=== PATIENT | female | born 1990 | race Caucasian/White ===

== ENCOUNTER 2024-03-07 10:24 | Outpatient (RCR) | payer BC, SELFPAY ==
--- NOTE | 2024-03-07 10:10 | BH.SGPN.GN ---
Behaviors/Verbalizations/Mental Status: [] Client alert and oriented, casual appearance. Eye contact fair. Motor activity appropriate. Speech within normal limits. Affect congruent, mood depressed and anxious. Thoughts linear, logical, no signs of hallucinations or delusions. Client Response/Progress/Benefit: []Pt quiet throughout group session. Did appear attentive during group discussions. Attentive during psychoeducation about Goal Setting. Listened during the discussion on common barriers which the group identified as: lack of motivation, making excuses, high expectations, fear of failure, and lack of support. Group also identified benefits sense of purpose, improved self-confidence, more motivation for other goals, and improved mental health. Seemed to benefit from increased awareness of mental health benefits of goals as well as psychoeducation on SMART goal criteria. First day in IOP. Will continue in IOP to improve daily functioning, improve coping, increase confidence, and prevent decompensation. Narrative Note: []
--- NOTE | 2024-03-07 11:00 | BH.SGPN.GN ---
Behaviors/Verbalizations/Mental Status: []Pt alert and oriented, casually dressed and groomed. Eye contact good. Motor activity appropriate. Speech within normal limits. Affect congruent, mood anxious and depressed. Thoughts linear, logical, no signs of hallucinations or delusions. Client Response/Progress/Benefit: [] Pt was engaged during discussion and willing to complete the worksheet challenging them to develop a personal SMART goal. Pt chose the goal of walking her dog 1-2x in the next week. Pt stated this will improve motivation, connection with her dog, and reduce isolation. Pt identified time of day and guilt as potential barriers. Identified solutions such as taking a walk in the evening to reduce anxiety about seeing someone she knows, communicating her needs with her supports, and reminding herself of the benefits. Pt receptive to identifying solutions for these barriers and willing to begin working on this goal. Benefited from this group by developing a short-term SMART goal related to mental health. Will continue IOP tx to increase healthy coping skills, stabilize mental health sx, and prevent decompensation. Narrative Note: []
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
--- NOTE | 2024-03-07 14:28 | BH.MTP_ITS ---
Master Treatment Plan Patient Information Program Physician:: Dr. Strong Primary Therapist:: Sophia Carney, [facility] Psychiatric Diagnoses Psychiatric Diagnoses:: 1. Major depressive disorder, recurrent, severe without psychosis 2. PTSD 3. Generalized anxiety disorder 4. Primary support and work issues Diagnosis Code(s):: F33.2 Estimated LOS Estimated LOS (in weeks):: 6 Problem/Goal #1 Problem/Goal #1 Stated Goal:: Client will reduce overall frequency, intensity, and duration of the anxiety so that daily functioning is not impaired. Description of Barriers: Potential barriers include negative and distorted thoughts, limited support system, anxious thoughts, hopelessness, and low confidence. Functional Impact: Patient is a 33-year-old single female with a history of depression, anxiety and PTSD who was referred to the [facility] behavioral health IOP by friends and family for worsening symptoms of anxiety in the past month. She has been on intermittent FMLA since January 04, 2024. The patient in the past month began having trauma symptoms which were triggered by several events at work. She endorses sadness, crying, hopelessness, worthlessness, anhedonia, biological disruption of appetite, initial insomnia and waking up with a cold sweat although getting 7 to 8 hours of sleep. She also endorses low energy, decreased concentration, guilt, passive thoughts of and fleeting, passive suicidal ideation. She has thoughts of a plan but denies definitive plan. She has had a long history of passive thoughts of and says that she is always wanted to or not exist.. She states that these thoughts of have been lessening. Objectives Objective #1: Stated Objective: Client will learn and implement 2-3 calming skills to r educe overall anxiety and manage anxiety symptoms. Interventions: Therapist and group sessions will help client identify physiological warning signs of anxiety, increase awareness of thoughts that increase anxiety, and identify behaviors that reinforce anxious symptoms. Group and individual counseling will teach client calming skills to help manage anxious symptoms. Discharge Criteria: Client will have achieved this goal when can verbalize at least 2 calming skills and reports skills successfully help reduce anxious symptoms. Target Date: 04/22/24 Review Date: 04/04/24 Objective #2: Stated Objective: Client will identify 2-3 anxiety triggers and 2 coping skills to use when feeling anxious. Interventions: Therapist and group sessions will assist client in exploring what triggers anxiety and teach client coping strategies to effectively manage anxiety symptoms. Discharge Criteria: Client will have met this goal when can identify at least 2 triggers to anxiety and verbalize two healthy ways to cope with feelings of anxiety. Target Date: 04/22/24 Review Date: 04/04/24 Problem/Goal #2 Problem/Goal #2 Stated Goal:: Client will reduce depression, feelings of hopelessness, and thoughts of due to Major Depressive Disorder through the Intensive Outpatient Program. Description of Barriers: Potential barriers include negative and distorted thoughts, limited support system, anxious thoughts, hopelessness, and low confidence. Functional Impact: Patient is a 33-year-old single female with a history of depression, anxiety and PTSD who was referred to the [facility] behavioral health IOP by friends and family for worsening symptoms of anxiety in the past month. She has been on intermittent FMLA since January 04, 2024. The patient in the past month began having trauma symptoms which were triggered by several events at work. She endorses sadness, crying, hopelessness, worthlessness, anhedonia, biological disruption of appetite, initial insomnia and waking up with a cold sweat although getting 7 to 8 hours of sleep. She also endorses low energy, decreased concentration, guilt, passive thoughts of and fleeting, passive suicidal ideation. She has thoughts of a plan but denies definitive plan. She has had a long history of passive thoughts of and says that she is always wanted to or not exist.. She states that these thoughts of have been lessening. Objectives Objective #1: Stated Objective: Client will learn and utilize 2-3 healthy coping strategies to manage depressive symptoms. Interventions: Therapist will utilize CBT techniques to assist client with understanding the connection between thoughts, feelings and behaviors. Education will be provided on behavioral activation. Therapist will assist client in learning internal coping strategies to manage depressive symptoms, along with helping client identify triggers. Discharge Criteria: Client will have achieved this goal when can verbalize and has practiced at least 2 healthy coping strategies that successfully manage depressive symptoms. Target Date: 04/22/24 Review Date: 04/04/24 Objective #2: Stated Objective: Client will identify and replace 2-3 negative thinking patterns that reinforce feelings of hopelessness and helplessness. Interventions: Through groups and individual therapy, pt will be provided with education on cognitive distortions, mistaken beliefs, and identifying and combating negative self-talk. Therapist will assist pt with getting back into the activities she once enjoyed as well as increasing healthy coping strategies. Discharge Criteria: Client will have achieved this goal when can identify at least 2 negative thinking patterns, replace thoughts with rational thoughts, and combat suicidal ideation. Target Date: 04/22/24 Review Date: 04/04/24
--- NOTE | 2024-03-09 10:00 | BH.NA ---
Physical Data Vital Signs Pulse Rate: 69 Blood Pressure: 124/85 Height/Weight Height: 1.75 m Weight:: 83.915 kg Weight in Pounds: 185.0 lbs Current Medication Compliance Medication Compliance Do you take your medication as prescribed?: Yes Nutritional History Appetite Nutritional Instructions: Describe your appetite:: Fair Additional nutritional information:: Client states her appetite has been decreased since December and she has noticed her clothes fitting more loose. Functional Assessment Sleep Pattern Describe any problems with sleeping: Client states she sleeps 7-8 hours per night. Sensory/Communication Assess Vision Problems Do you have any vision problems?: Glasses Communication Problems Do you have difficulty understanding what people are saying?: No Medical Problems/History Pain Assessment Do you have acute or chronic pain?: No Surgical History Surgical History Have you had any surgeries? If so, list type and date:: Yes (tonsilectomy) Substance Abuse Substance Abuse Please describe substance abuse in the last 30 days:: Client reports past alcohol use but denies current. Client states she used nicotine pouches but stopped 1 week ago. Client states she used marijuana on a regular basis in the past, but has not used since December 2023. Client states she has tried cocaine, jason, mushrooms and Adderall once in the past. Client states she drinks 1 cup of coffee per day. Mental Status Summary Mental Status Significant Findings/Observations on Appearance and Mood:: Client is alert and oriented x 4. Client is casually groomed. Client is cooperative with assessment. Client makes good eye contact. Client's voice has normal rate and volume. Client has appropriate affect. Client makes logical associations and has normal processing. Client denies delusions/hallucinations. Client denies current SI, stating her fleeting SI has improved in the last few days. Suicide Assessment Suicidal Ideation Are you currently or have you been suicidal in the past?: Yes Suicidal Intentional Rating Scale (SIRS): Suicidal thoughts (past) (has fleeting SI at times, but denies at this time) Physician Notification Past Psychiatric History MH Treatment Hx Past Psychiatric Medications:: Zoloft (just weaned off, had increased suicidal thoughts and some xavier on Zoloft), Wellbutrin, Atarax Age of first mental health symptoms: Client states she first took medication for mental health around age 29, but states she has felt anxious and depressed much longer than that. Describe (age, circumstance, etc) any past hospitalizations: 2021- Current providers for mental health treatment (counselor, psychiatrist, bilingual patient support caseworker, etc.): Dr. Gamez, psychologist at the [facility] but states she may be looking for a new provider Fall Risk Assessment Age Age: Less than 60 Mental Status Mental Status: Willing & able to ask for assistance when needed Physical Status Physical Status: No problems Impairments Impairments: None Elimination Elimination: Continent AND independent Gait or Balance Gait or Balance: Walks independently Hx of Falls History of falls in the past 6 months: No known history Medications/Substances Psychotropics:: Antidepressants Medications/substances used within the past 24 hours or ordered to administer: 1-2 of the medications/substances listed above Total Score Total Points:: 1 RN Summary of Impressions Impressions Recommendations Impressions: Psychiatric Issues: 1. Major depressive disorder, recurrent, severe without psychosis 2. PTSD 3. Generalized anxiety disorder Level of Care How do the client's current symptoms and functional deficits support need for this level of care?: Client was referred to IOP by her family for increased anxiety. Client states in December, she had some trauma triggers that caused her to feel anxious at work and like she wasn't doing a good job. Client states her production numbers and work are within range, but she feels like she is not doing a good job and feared being fired. Client states she has lost weight due to decreased appetite since this time. Client also reports some crying episodes, anhedonia and ruminations. Client states she had been weaning off her Zoloft due to having increased suicidal thoughts when she was on her highest dose (200mg) and states she has switched to Prozac. Client states her fleeting suicidal thoughts have decreased this week since starting IOP. Client denies SI at this time. IOP will promote gains and prevent further decompensation while providing social support and skills training.
--- NOTE | 2024-03-09 10:10 | BH.SGPN.GN ---
Behaviors/Verbalizations/Mental Status: []Eye contact is good. Motor activity is appropriate. Appearance is casual. Speech is Appropriate. Mood is dysthymic. Affect is constricted. Thoughts are linear and logical. No evidence of psychosis. Client Response/Progress/Benefit: [] Pt was an engaged participant AEB listening attentively to others, taking notes, and providing feedback in small group discussions. Attentive during psychoeducation AEB by note taking and providing some input. Pt worked along with peers in small groups to define inappropriate guilt and appropriate guilt. Interactive discussion on examples of both inappropriate and appropriate guilt. Pt able to connect impact inappropriate guilt can have on MH. Pt gave an example of blaming self over actions of others as inappropriate guilt. Benefited from increased awareness of guilt and the differences between appropriate and inappropriate guilt. Will continue in IOP to improve confidence, challenge distorted thoughts, and prevent decompensation.
[2024-03-09 10:14] VITALS: BP 124/85; PULSE 69
--- NOTE | 2024-03-09 11:08 | BH.SGPN.GN ---
Behaviors/Verbalizations/Mental Status: []Pt alert and oriented, casually dressed and groomed. Eye contact good. Motor activity appropriate. Speech within normal limits. Affect congruent, mood depressed. Thoughts linear, logical, no signs of hallucinations or delusions. Client Response/Progress/Benefit: []Pt engaged participant AEB listening attentively to others and providing input throughout group. Pt worked within their small group to identify strategies to manage inappropriate guilt. Identified a personal example of inappropriate guilt as ?something that happened at work.? Insight cues a feeling of ?something is always wrong with me.? Pt wants to work on combatting inappropriate guilt by being kinder and more compassionate to herself. Pt seemed to benefit from learning about strategies to manage appropriate and inappropriate guilt. Pt will continue IOP tx to prevent decompensation, improve daily functioning, and increase distress tolerance. ? Narrative Note: []
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
--- NOTE | 2024-03-09 12:52 | BH.DR.ITP ---
Initial Treatment Plan Patient Information Visit Information: ADMISSION DATE: EXPECTED LOS: 4-6 weeks Problems/Symptoms Problem #1:: Anxiety Symptom:: Worry, rumination, panic attacks, nausea, gagging, dissociation, nightmares, flashbacks, reexperiencing, avoidance Problem #2:: Depression Symptom:: Sadness, worthlessness, guilt, anhedonia, biological disruption of appetite, low energy, decreased concentration, passive thoughts of , fleeting, passive suicidal ideation
--- NOTE | 2024-03-11 10:10 | BH.SGPN.GN ---
Behaviors/Verbalizations/Mental Status: [] Eye contact is good. Motor activity is appropriate. Appearance is casual. Speech is Appropriate. Mood is anxious. Affect is congruent. Thoughts are linear and logical. No evidence of psychosis Client Response/Progress/Benefit: [] Client participated at times during interactive group discussions. Attentive during psychoeducation on the six types of boundaries (physical, emotional, intellectual, sexual, time, and material) AEB note-taking and input in group discussions. Along with peers contributed to interactive discussion on defining what a boundary is in mental health. Client along with peers identified challenges to setting boundaries which included; fear of conflict, being uncomfortable, believing they are being rude or mean, etc. Client along with peers identified the benefits to setting boundaries such as healthier relationships, stronger sense of self, and improved confidence. Client benefited from increased awareness and insight on the importance/benefit to setting health boundaries. Will continue in IOP to prevent decompensation, maintain safety, and increase healthy coping. Narrative Note: []
--- NOTE | 2024-03-11 11:10 | BH.SGPN.GN ---
Behaviors/Verbalizations/Mental Status: [] Eye contact is good. Motor activity is appropriate. Appearance is casual. Speech is Appropriate. Mood is euthymic. Affect is congruent. Thoughts are linear and logical. No evidence of psychosis. Client Response/Progress/Benefit: [] Client responded well to session AEB listening attentively to peers, providing some input, as well as taking notes throughout. Client contributed throughout psychoeducation on different boundary setting styles. Participated in group discussion brainstorming various strategies for improving healthy boundary settings, as a group identified starting with easy/small boundaries, opening up to one trusted person and not overly apologizing as strategies to try. Seemed to benefit from increased awareness of how different boundary styles can impact mental health. Will continue IOP tx to increase healthy coping, improve view of self, and prevent decompensation.
--- NOTE | 2024-03-11 13:43 | BH.MDN ---
Multi-Disciplinary Note Note 60-min Individual: Time Started:: 09:00 Date: 03/11/24 Purpose of session/treatment goals addressed:: Purpose of session was to address goals 1 and 2 from MTP. Eye Contact:: Good Motor Activity:: Appropriate Appearance:: Casual Speech:: Appropriate Mood:: Anxious Affect:: Constricted Thoughts:: Linear, Logical and No evidence of hallucinations/delusions noted Staff Interventions:: thought challenging, psychoeducation on: (cognitive triangle and behavior activation), CBT techniques, mindfulness skills, rapport building, strengths perspective, goal setting and taught coping skills (breathing and grounding tools) Client Response:: Client stated so far she has really enjoyed her first week in [facility]. Client reported she is already learned new things from different group topics and has been reflecting on the topic to apply it to her life. Therapist provided psychoeducation about cognitive triangle and behavior activation. Therapist assisted client with recognizing how her thoughts behaviors and emotions are all interconnected. Client able to make connections on how sometimes the way she thinks and/or behaves turns into a depression or anxious maintenance cycle. Client stated she recognizes she used to have a lot more hobbies in the past but has stopped doing majority of them because she has not felt like it. Client shared some the hobbies she used to have included: Drawling, being active, CrossFit, reading, walking her dog, and [place] climbing. Client stated she does continue to walk her dog and finds it to be really important to her. Client shared some of the reason she has not engaged in these activities because she has not felt like it and in addition to that she has questioned whether it something that she actually enjoys or is it something she did because that is what the partner she was with at the time enjoyed. Client shared she feels like she does not really know who she is or what she likes because often within relationships she molds into what the other person likes and does. Client reported she could get back involved in rock wall climbing because it was something she enjoyed. 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 Client also agreeable to practice breathing and grounding techniques taught in session. Risks/Concerns:: denies suicidal ideation, plan, or intention. future oriented. Progress Toward Goals/Plan:: Progress noted with client reporting connection to group sessions and starting to apply skills/strategies outside treatment environment. Client noted slight improvement with mood. Continues to experience anxious symptoms and thoughts. Client stated still having flashbacks from witnessing traumatic event at work. Client to continue IOP to increase healthy coping, improve daily functioning, and prevent decompensation. Time Stopped:: 09:55
--- NOTE | 2024-03-14 09:01 | BH.SGPN.GN ---
Behaviors/Verbalizations/Mental Status: [] Pt eye contact good, casually dressed, motor activity appropriate, speech normal rate and tone, mood euthymic and anxious, congruent affect, thoughts linear and intact, no evidence of delusions or hallucinations. Per daily symptom tracker pt denies active SI and intention. Client Response/Progress/Benefit: [] Client appeared to listen attentively to others and sharing openly with group. Per daily sympton tracker client reports 3/5 for anxiety and 2/5 for depression. Client reported mental health positive as choosing to change her environment at work when feeling down/depressed by going outside for her lunch break to get some fresh air and sun. Stated this did help improve her mood. Client stated additional positive as applying skills learned from group by being more mindful about her boundaries, specially being more cognizant of not over sharing with her co-worker. Appeared to benefit from support from peers. Client stated stressor is having a thought over the weekend that she didn't need IOP. Stated she did process this and knows coming to IOP could be very beneficial to her. Will continue IOP tx to promote healthy coping skills, continue working on distress tolerance, and prevent decompensation,.
--- NOTE | 2024-03-14 10:10 | BH.SGPN.GN ---
Behaviors/Verbalizations/Mental Status: [] Eye contact is good. Motor activity is appropriate. Appearance is casual. Speech is Appropriate. Mood is depressed. Affect is congruent. Thoughts are linear and logical. No evidence of psychosis. Client Response/Progress/Benefit: [] Pt participated at times. Attentive. Participated in and was engaged during experiential activity. Able to relate experiential activity to group topic of FOF. Engaged during interactive discussion on what failure means to the group in which peers identified and defined failure and Fear of Failure. Group was able to identify impact of fear of failure on mental health identifying that it can cause procrastination, avoidance, self-sabotage behaviors, etc. Attentive during interactive discussion on the impact that FOF can have on mental wellness, depression, anxiety, career, relationships, and growth. Benefited from increased awareness of how the role that FOF plays in mental health and decision-making. Will continue in IOP to prevent decompensation, decrease intrusive thoughts/anxiety, and increase healthy coping. Narrative Note: []
--- NOTE | 2024-03-14 11:08 | BH.SGPN.GN ---
Behaviors/Verbalizations/Mental Status: []Pt alert and oriented, neatly dressed and groomed. Eye contact good. Motor activity appropriate. Speech within normal limits. Affect congruent, mood euthymic. Thoughts linear, logical, no signs of hallucinations or delusions. Client Response/Progress/Benefit: []Pt responded well to session, engaged in the experiential activity and attentive throughout group processing. Pt reported fear of failure has kept pt from continuing her education, making new friends, and being with myself. Pt completed fear of failure worksheet and was able to identify thoughts and behaviors that reinforce personal fear of failure including procrastination, fear of looking silly, and not combatting negative self-talk. Pt participated in group discussion regarding strategies to overcome fear of failure. Identified wanting to work on using opposite action and noting how it went. Appeared to benefit from increased knowledge of strategies to combat fear of failure and gaining self-awareness. Pt will continue IOP tx to prevent decompensation, improve daily functioning, and reduce negative thinking patterns. ? Narrative Note: []
--- NOTE | 2024-03-16 09:05 | BH.SGPN.GN ---
Behaviors/Verbalizations/Mental Status: [] Eye contact is good. Motor activity is appropriate. Appearance is casual. Speech is Appropriate. Mood is euthymic. Affect is full. Thoughts are linear and logical. No evidence of psychosis. Reviewed daily check in sheet and no reports of suicidal ideations or intent. Client Response/Progress/Benefit: [] Pt was an active participant in group discussion. Attentive. Daily symptom tracker notes 2/5 for depression and anxiety. Emotion for today is receptively calm. Able to identify mental health wins and healthy habits. She shared several mental health wins since yesterday. Able to utilize behavioral activation and thought reframing skills to follow thorough with responsibilities inside and outside of her house. Shared stressors and symptom struggles as well. Progress noted per pt report. Benefited from group support, encouragement, and feedback. Will continue in IOP to prevent decompensation, increase healthy coping, and improve functioning. Narrative Note: []
--- NOTE | 2024-03-16 11:10 | BH.SGPN.GN ---
Behaviors/Verbalizations/Mental Status: [] Client alert and oriented, casually dressed and groomed. Eye contact good. Motor activity appropriate. Speech within normal limits. Affect constricted, mood dysthymic. Thoughts linear, logical, no signs of hallucinations or delusions. Client Response/Progress/Benefit: [] Client responded well to session, engaged and taking notes throughout. Worked with group to connect components of the experiential activity with characteristics of healthy and unhealthy relationships. Attentive during psychoeducation about characteristics of healthy, unhealthy, and abusive relationships. Client reported she would like to work on being honest with her needs and will practice this by communicating that she needs alone time with her dog. Appeared to benefit from identifying current healthy relationship attributes and an area client wants to work on to build healthier relationships. Client to continue IOP to increase consistent use of healthy coping skills, challenge distorted thoughts, and prevent decompensation.
--- NOTE | 2024-03-17 10:10 | BH.SGPN.GN ---
Behaviors/Verbalizations/Mental Status: []Pt alert and oriented, casually dressed and groomed. Eye contact good. Motor activity appropriate. Speech within normal limits. Affect congruent, mood depressed and anxious. Thoughts linear, logical, no signs of hallucinations or delusions. Client Response/Progress/Benefit: [] Pt was an active?participant in group discussion identifying benefits of healthy relationships which included improved connections, accountability, and personal growth. Group identified factors that lead to unhealthy relationships. Pt?s personal factors included isolation, ignoring her own needs and prioritizing other's frederic, and not addressing conflict. Actively participated in group experiential activity and expressed ideas to group. Benefited from increased insight and awareness of benefits of healthy relationships and factors that contribute to unhealthy relationships. Will continue IOP tx to promote mood stability, increase application and repertoire of coping skills, and improve daily functioning. Narrative Note: []
--- NOTE | 2024-03-18 09:05 | BH.SGPN.GN ---
Behaviors/Verbalizations/Mental Status: [] Pt alert and oriented, neatly dressed and groomed. Eye contact good. Motor activity appropriate. Speech within normal limits. Affect congruent, mood euthymic and anxious. Thoughts linear, logical, no signs of hallucinations or delusions. Reviewed pt?s symptom tracker, no risk for suicidal ideation, plan, or intent 03/18/24 Client Response/Progress/Benefit: []Pt responded well to session, attentive and engaged. Pt reports feeling mixed this morning. Pt shared she can see a lot of wins, but pt is also having a lot of negative thoughts and stress with family. Pt shared one stressor as snapping at my mom after spending too much time together. Pt receptive to feedback from group and was reminded that she can love someone and not want to spend long periods of time with them. Pt's wins included cleaning/organizing, walking her dog, and listening to uplifting music. Pt appeared to benefit from recognizing personal progress and connecting with peers. Pt will continue IOP tx to prevent decompensation, gain healthy coping skills, and improve daily functioning. Narrative Note: []
--- NOTE | 2024-03-18 10:15 | BH.SGPN.GN ---
Behaviors/Verbalizations/Mental Status: []Eye contact is good. Motor activity is appropriate. Appearance is casual. Speech is Appropriate. Mood is content. Affect is congruent. Thoughts are linear and logical. No evidence of psychosis. Client Response/Progress/Benefit: [] Pt was an active participant in activity and taking notes during group discussion. Attentive during psychoeducation and interactive discussion on coping skills included why people use unhealthy skills. Group came up with list of unhealthy coping skills and pt identified personal ones as avoidance, denial, and not practicing self-care. Group discussed the effects of how unhealthy coping skills can impact mental health in a negative way. Participated during experiential activity and was able to relate the activity to group topic regarding the benefits of developing strong internal and external support system. Benefited from increased understanding of unhealthy coping skills and the need for developing healthy internal and external coping skills. Pt will continue IOP tx to prevent decompensation, promote mood stability, and improve daily functioning. ? Narrative Note: []
--- NOTE | 2024-03-18 11:15 | BH.SGPN.GN ---
Behaviors/Verbalizations/Mental Status: []Pt alert and oriented, casually dressed and groomed. Eye contact good. Motor activity appropriate. Speech within normal limits. Affect congruent, mood anxious and euthymic. Thoughts linear, logical, no signs of hallucinations or delusions. Client Response/Progress/Benefit: [] Pt responded well to session, taking notes and contributing when prompted. Group discussed the different categories of coping skills which included distraction, emotional release, grounding, self-love, and thought challenging. Pt participated in creating a coping skills ?menu? from the five categories of coping skills. Pt's coping skill menu included: goal oriented tasks, laughing, belly breathing, body movement/yoga, and delay, distract, decide technique. Appeared to benefit from increasing repertoire of healthy coping skills. Will continue IOP to improve view of self, challenge distortions, and prevent decompensation.
--- NOTE | 2024-03-18 14:54 | BH.MDN ---
Multi-Disciplinary Note Note 45-min Individual: Time Started:: 12:10 Date: 03/18/24 Purpose of session/treatment goals addressed:: The session was to address goals 1 and 2 from MTP. Eye Contact:: Good Motor Activity:: Appropriate Appearance:: Casual Speech:: Appropriate Mood:: Anxious Affect:: Constricted Thoughts:: Linear, Logical and No evidence of hallucinations/delusions noted Staff Interventions:: thought challenging, psychoeducation on: (self-care), CBT techniques, strengths perspective, goal setting and taught coping skills (self-care activities and provided self-care wheel) Client Response:: Client shared she was struggling after spending time all with her mom and became upset with herself for correcting her mom while at her niece's [employer] game. Client stated she realizes now that she was trying to do too much in 1 day. Client reports she does get bothered when in public with her mom because she has lot of social anxiety and can be critical of others. Client stated she did make a comment to her mom when her mom was making an unhelpful comment by another person. Client perceived herself as being critical but with further discussion it seems client was truly setting a boundary but was hard on herself for doing so. Client stated she ruminated on the situation the rest of the evening and then was upset with herself for taking a Ativan at night to help her sleep. Processed negative thought patterns and anxious thoughts helping client challenge negative thought patterns. Client noted she does need to work on being less attuned to others' emotions because it negatively impacts her own emotions and ability to enjoy being out. Client gave example of being overly worried about her mom being anxious while at a store. Client stated often her own emotions are impacted by the anxiety of others. Discussed the importance of utilizing grounding tools and breathing tools to help bring client back to the here and now and focus on her own self and what is within her control. Client stated she recognizes she puts a lot of effort into helping others and trying to be there for what other people need and often lacks taking care of herself. Client responded well to psychoeducation about self-care and the importance of doing things that she enjoys. Therapist reviewed self-care wheel with client and discussed different self-care activities they can fall under each category. Client agreeable to complete homework of identifying at least 1 self-care activity she can start to practice for each domain of self-care. Risks/Concerns:: Denies suicidal thoughts, plans, or intention. future oriented. Progress Toward Goals/Plan:: Progress noted with client reporting utilization of opposite action while at work the other day. Client stated she noticed improvement in her mood when she chose to go outside during her lunch break instead of staying in her office all alone. Client also starting to work on learning about what boundaries are important to her and recognizing the importance of setting limits so she can start to focus on her own needs. Client did report moments of feeling down and depressed over the last week and her own anxiety spiked when pushed herself too much with socializing with her mom. Client is to continue IOP to increase healthy coping skills, improve thought patterns, and prevent decompensation. Time Stopped:: 13:00
--- NOTE | 2024-03-23 09:05 | BH.SGPN.GN ---
Behaviors/Verbalizations/Mental Status: [] Eye contact is good. Motor activity is appropriate. Appearance is casual. Speech is Appropriate. Mood is euthymic. Affect is full. Thoughts are linear and logical. No evidence of psychosis. Reviewed daily check in sheet and no reports of suicidal ideations or intent. Client Response/Progress/Benefit: [] Pt was an active participant in group discussions. Attentive. Daily symptom tracker notes 12/28 for anxiety and 2 for irritability. Shared with the group anxiety pacing on Thursday. Able to identify thoughts that were leading to panic which led to healthy reframing and challenging. Awareness that she was setting unrealistic expectations for herself which was leading to guilt and feel overwhelmed. With awareness came impletation of skills and symptom reduction. A goal that she has is to increase her social network which has been difficult. Group provided suggestions and encouragement which was beneficial. Progress noted. Will continue in IOP to prevent decompensation, stabilize mood, and increase healthy coping skills. Narrative Note: []
--- NOTE | 2024-03-23 10:10 | BH.SGPN.GN ---
Behaviors/Verbalizations/Mental Status: []Client alert and oriented, casually dressed and groomed. Eye contact good. Motor activity appropriate. Speech within normal limits. Affect congruent, mood euthymic. Thoughts linear, logical, no signs of hallucinations or delusions. Client Response/Progress/Benefit: []Pt engaged in session AEB listening attentively to others and providing input throughout. Pt engaged in activity, able to connect how it can be uncomfortable and difficult to accept when things are out of one?s own control. Pt worked with group to identify what things in life can be hard to accept. Group identified things hard to accept as: change, loss of relationship, mental health diagnosis, other?s behaviors, and finances. Pt identified struggling to accept living life on her own doesn't meet she's lonely. Seemed to benefit from increased awareness of importance of acceptance. Pt to continue IOP tx to increase healthy coping skills, improve view of self, and prevent decompensation.
--- NOTE | 2024-03-23 11:10 | BH.SGPN.GN ---
Behaviors/Verbalizations/Mental Status: []Pt alert and oriented, neatly dressed and groomed. Eye contact good. Motor activity appropriate. Speech within normal limits. Affect congruent, mood euthymic. Thoughts linear, logical, no signs of hallucinations or delusions. Client Response/Progress/Benefit: [] Pt responded well to session AEB taking notes and contributing to discussion throughout. Pt engaged as group continued discussion on acceptance and the mental health benefits of practicing acceptance. Pt and peers identified what makes acceptance challenging and pt completed a self-reflection exercise on what is hard to accept in pt's life. Pt identified what is hard to accept in her life and how it makes things harder when resists acceptance. Group identified strategies to increase acceptance and pt wants to work on reminding herself that ?I can love someone and not want them in my life.? Pt appeared to benefit from gaining insight and learning strategies to increase acceptance. Pt will continue IOP tx to prevent decompensation, improve daily functioning, and gain self-compassion. Narrative Note: []
--- NOTE | 2024-03-23 11:32 | PCM.BH.PN ---
Progress Note Progress Note: History of Present Illness/Interim History: The patient is a 33-year-old single female with a history of depression, anxiety and PTSD who was seen in follow-up at the [facility] [place] behavioral health IOP. I last saw the patient 2 weeks ago and no medication changes were made. Per staff the patient has been consistent in attendance and engaged in the program and has made some progress in the past few weeks. The patient states that she feels much better and that her anxiety is decreased to the point where it is quite manageable. She no longer has crying episodes, hopelessness, passive thoughts of or fleeting passive suicidal ideation. The patient feels she is gaining insight into her her issues and also into the impact her trauma has had on her life. She also denies active suicidal ideation, plan for suicide, homicidal ideation, hallucinations or delusions. Current Psychiatric Medications: [] Prozac 20 mg p.o. daily (x 1 month); Zoloft weaned and discontinued 2 weeks ago;. Mental Status Examination: [] The patient is a 33-year-old female who appears normal for stated age and is casually dressed and groomed with good hygiene. She is seen wearing glasses and is ambulatory with a normal gait and has no psychomotor agitation or retardation. She is cooperative and pleasant during the interview. Eye contact is good and speech is normal rate and rhythm and fluent with no pressure. Mood is anxious and mildly depressed. Affect is full and normal. Thought processes goal-directed and organized. Thought content: The patient is hopeful for the future. There is no evidence of passive thoughts of , passive suicidal ideation, active suicidal ideation, plan for suicide, homicidal ideation, hallucinations or delusions. Reality testing is intact. Judgment is intact. Insight is good. Impulsivity is moderate. Diagnoses: [] 1. Major depressive disorder, recurrent, severe without psychosis (improving) 2. PTSD 3. Generalized anxiety disorder 4. Primary support and work issues Plan: [] The patient will continue the IOP and behavioral health at [facility] [place] as the structure, support, education and group therapy will hopefully prevent worsening of the patient's symptoms which could require hospitalization. She felt safe during the interview and if it anytime she does not feel safe she will let us know or go to the emergency room. The risk, options, possible complications and side effects of the medications were discussed with the patient again and she understands and accepts these. The patient wishes to not increase the Prozac at this time as she feels she is making progress and is fearful of side effects or feeling numb on it. She will continue to follow-up with her outpatient providers and I will see the patient in follow-up in 2 weeks. The patient remains sober from nicotine which she quit 3 weeks ago and marijuana which she quit over 2 months ago.
--- NOTE | 2024-03-25 11:15 | BH.SGPN.GN ---
Behaviors/Verbalizations/Mental Status: []Client alert and oriented, casually dressed and groomed. Eye contact good. Motor activity appropriate. Speech within normal limits. Affect congruent, mood euthymic. Thoughts linear, logical, no signs of hallucinations or delusions. Client Response/Progress/Benefit: []Pt was engaged throughout AEB contributing to group discussion and self-reflection. Group finished processing cues to anger worksheet. Pt contributed as group brainstormed healthy coping skills for better managing anger which included: music, walking/exercise, taking a break, reflection, and journaling. Attentive in discussion about identifying personal anger cycle. Stated will work on exercise, journaling, walking away, and exercise as skills/strategies to prevent unhealthy anger response. Pt appeared to benefit from identifying different techniques to manage anger as well as gaining awareness of potential consequences of unmanaged anger. Pt to continue IOP to continue use of healthy coping skills, challenge distorted/negative thoughts, and prevent decompensation.
--- NOTE | 2024-03-25 13:40 | BH.MDN ---
Multi-Disciplinary Note Note 45-min Individual: Time Started:: 09:07 Date: 03/25/24 Time Stopped:: 10:00
== END 2024-03-25 23:59 ==
LOC: BHIOP 10:24
PROVIDERS: Visit Provider Psychiatry & Neurology Psychiatry
DX: F33.2 Major depressive disorder, recurrent severe without psychotic features (principal); F43.10 Post-traumatic stress disorder, unspecified; F41.1 Generalized anxiety disorder; Z79.899 Other long term (current) drug therapy
CPT/HCPCS: S9480; 90834; 90837; 90853

== ENCOUNTER → 2024-03-23 | Outpatient (CLI) | payer BC, SELFPAY ==
[2024-03-23 14:22] LABS: Thyroid Stim Hormone (TSH) 0.73 uIU/mL (0.358-3.74)
[2024-03-23 15:35] LABS: Vitamin D,25 Hydroxy 17.2 ng/mL
== END | disposition home or self-care (01) ==
LOC: LAB 13:15
PROVIDERS: PCP Nurse Practitioner Family; Referring Provider Psychiatry & Neurology Psychiatry; Visit Provider Psychiatry & Neurology Psychiatry
DX: E55.9 Vitamin D deficiency, unspecified (principal)
CPT/HCPCS: 36415; 82306; 84443

== ENCOUNTER 2024-03-28 08:11 | Outpatient (RCR) | payer BC, SELFPAY ==
--- NOTE | 2024-03-25 10:10 | BH.SGPN.GN ---
Behaviors/Verbalizations/Mental Status: [] Eye contact is good. Motor activity is appropriate. Appearance is casual. Speech is Appropriate. Mood is anxious. Affect is full. Thoughts are linear and logical. No evidence of psychosis Client Response/Progress/Benefit: [] Pt responded well to session AEB contributing to small group discussion, taking notes, and listening attentively to others. Participated during interactive discussion in which pt and peers defined anger and discussed the benefits of managed anger and anger as a secondary emotion. Group identified several emotions which can drive anger which included; pain, confusion, jealously, regret, loss, embarrassment, and exhaustion. Appeared to benefit from increased knowledge of the anger cycle as well as personal triggers. Will continue IOP to prevent decompensation, increase healthy coping skills, and stabilize mood. Narrative Note: []
[2024-03-26 02:37] VITALS: BP 124/85; PULSE 69
--- NOTE | 2024-03-28 09:05 | BH.SGPN.GN ---
Behaviors/Verbalizations/Mental Status: [] Eye contact is good. Motor activity is appropriate. Appearance is casual. Speech is Appropriate. Mood is dysthymic. Affect is congruent. Thoughts are linear and logical. No evidence of psychosis. Reviewed daily check in sheet and pt reports 1/5 for suicidal ideations and 0/5 for intent. Client Response/Progress/Benefit: [] Pt was an active participant in group discussion. Attentive. Daily symptom tracker notes 3/5 for depression, anxiety, and irritability. Emotion for today is distracted and tired. Shared limited self-care and increased symptoms this past weekend. Attempted to utilize skills however limited benefit. Shared odd interactions with co-workers this weekend. Reports difficulty utilizing skills when tired which led to decompensation over the weekend. Benefited from group support, encouragment, and feedback. Will continue in IOP to prevent decompensation, stabilize mood, and increase healthy coping. Narrative Note: []
--- NOTE | 2024-03-28 10:15 | BH.SGPN.GN ---
Behaviors/Verbalizations/Mental Status: []Pt alert and oriented, casually dressed and groomed. Eye contact good. Motor activity appropriate. Speech within normal limits. Affect congruent, mood content, anxious. Thoughts linear, logical, no signs of hallucinations or delusions. Client Response/Progress/Benefit: [] Pt connected with topic of anxiety and participated throughout, providing input and taking notes. Participated throughout interactive discussion defining anxiety and identifying cognitive and physiological symptoms of anxiety. Group discussed how anxiety can prevent them from trying new things. Pt identified their physical signs of anxiety as: stomach issues, feeling disconnected, and restlessness. Pt identified safety behaviors as: cancelling plans, isolating, and substance use. Benefited from increased awareness and insight on anxiety and its impact. Pt will continue IOP tx to prevent decompensation, improve daily functioning, and increase self-care. Narrative Note: []
--- NOTE | 2024-03-28 11:15 | BH.SGPN.GN ---
Behaviors/Verbalizations/Mental Status: []Pt alert and oriented, casually dressed and groomed. Eye contact good. Motor activity appropriate. Speech within normal limits. Affect congruent, mood euthymic. Thoughts linear, logical, no signs of hallucinations or delusions. Client Response/Progress/Benefit: [] Pt was an active participant AEB pt providing input and listening attentively to peers. Attentive during psychoeducation on mindfulness coping skills and their impact on reducing anxiety and improving overall mental health wellness. Group was able to identify self-soothing and mind-based coping skills which included: 5-senses, meditation, deep breathing, TIPP, thought challenging, and progressive muscle relaxation. Pt also participated with peers in practicing mindfulness skills in session. Pt would like to work on looking at the evidence, TIPP, and delay, distract, decide to help manage anxiety. Appeared to benefit from increasing repertoire of anxiety reduction skills. Pt will continue in IOP tx to promote mood stability, reduce negative thinking patterns, and improve daily functioning. Narrative Note: []
--- NOTE | 2024-03-30 09:05 | BH.SGPN.GN ---
Behaviors/Verbalizations/Mental Status: [] Pt alert and oriented, neatly dressed and groomed. Eye contact good. Motor activity appropriate. Speech within normal limits. Affect congruent, mood euthymic. Thoughts linear, logical, no signs of hallucinations or delusions. Reviewed pt?s symptom tracker, no risk for suicidal ideation, plan, or intent 03/30/24 Client Response/Progress/Benefit: []Pt responded well to session, attentive and engaged. Pt reports feeling tired and enthralled this morning. Pt shared her mental health wins today as socializing with her neighbors and finding karl in the interaction, making an eye appointment, and beginning to believe that maybe I do have some redeeming qualities. Pt's stressor today is navigating how to manage anxiety. Pt appeared to benefit from receiving supportive statements from peers. Pt will continue IOP tx to promote mood stability, increase self-compassion, and reduce isolation. Narrative Note: []
--- NOTE | 2024-03-30 10:15 | BH.SGPN.GN ---
Behaviors/Verbalizations/Mental Status: [] Eye contact is good. Motor activity is appropriate. Appearance is casual. Speech is Appropriate. Mood is anxious and cnotent. Affect is congruent. Thoughts are linear and logical. No evidence of psychosis. Client Response/Progress/Benefit: [] Pt receptive of session, actively engaged throughout AEB taking notes, providing input, and contributing in small group discussion. Appeared to connect with group topic of automatic thoughts and cognitive distortions and the impact of thought patterns on mental health, coping behaviors, and relationships. This particular group is very heavy on psychoeducation and pt appeared to connect with distortions and how they can impact functioning. Identified struggling with mind reading and predicting the future distortions. Pt appeared to benefit from gaining insight on distorted thinking patterns and how this impacts overall mental health. Will continue IOP to stabilize mood, improve self compassion and confident, and prevent decompensation. Narrative Note: []
--- NOTE | 2024-03-30 11:15 | BH.SGPN.GN ---
Behaviors/Verbalizations/Mental Status: []Pt alert and oriented, casually dressed and groomed. Eye contact good. Motor activity appropriate. Speech within normal limits. Affect congruent, mood euthymic. Thoughts linear, logical, no signs of hallucinations or delusions Client Response/Progress/Benefit: [] Pt was an active participant during group discussion. Pt was placed in a smaller group and participated in combatting example distortions with peers. Pt was engaged in the smaller group, participated in group interactions to brainstorm answers, and appeared to be comprehending cognitive distortions. Attentive and appeared to connect with psychoeducation about different strategies to reframe/challenge distortions. Engaged in small group practice of challenging cognitive distortion examples. Benefited from gaining further insight and awareness of cognitive distortions as well as practicing ways to reframe and challenge thoughts. Will continue in IOP to increase confidence, challenge negative thoughts, and prevent decompensation.
--- NOTE | 2024-03-30 15:03 | BH.MDN_ITS ---
Multi-Disciplinary Note Note 60-min Individual: Time Started:: 12:05 Date: 03/30/24 Purpose of session/treatment goals addressed:: Purpose session was to address goals 1 and 2 from MTP. Eye Contact:: Good Motor Activity:: Appropriate Appearance:: Casual Speech:: Appropriate Mood:: Anxious, Dysthymic and Other (Tearful) Affect:: Congruent Thoughts:: Linear, Logical and No evidence of hallucinations/delusions noted Staff Interventions:: thought challenging, CBT techniques, strengths p erspective, goal setting, taught coping skills and other (Problem solving) Client Response:: Client reported on Thursday she went out to eat with her mom and client stated she felt like she did better with focusing on herself versus focusing on her mom's behavior. Client stated typically she gets agitated with how her mom acts in public. Client stated she did recognize she was less agitated while out to eat with her mom which she attributes to trying to focus on herself more. Client reported while at the dinner she did have a drink and then felt extremely tired in the evening. Client stated she for some reason was being in a more depressed state and had thoughts that it be better if she was not alive. Client reported she was having some negative thoughts that she is alone and that people would just go on with their lives. Client was open to assistance from therapist to thought challenge some of the negative thought patterns she was having. Client stated she recognizes that the thoughts were irrational and that she does not want to . Client stated she did not think it was odd reaction she had to having a drink and feeling tired. Client recognizes she needs to continue to work on building her own confidence and self-esteem because she often relies on external validation in order to feel worth and feel good about herself. Client open to completing thought log to help her identify potential patterns in her negative thoughts and start the process of being able to challenge negative thoughts on her own. Risks/Concerns:: Denies suicidal ideation, plan, or intention. Future oriented. Client reports being able to maintain safety. Progress Toward Goals/Plan:: Progress note with client doing better with not allowing her mom's emotions to impact her own emotions anymore. Client still reporting moments of increased negative thinking and depressed thoughts. However despite recent depressed mood and passive thoughts of she was able to work through that moment and return to [facility]. Client could benefit from continuing to work on building confidence and view of self. Client is to start completing a thought log and will elicit support from therapist to help with challenging negative thoughts. Client to continue IOP to challenge distorted thoughts, improve view of self, and prevent decompensation. Time Stopped:: 13:00
--- NOTE | 2024-03-30 15:08 | BH.MTP_ITS ---
Treatment Plan Review Demographics Date of Admission:: 03/07/24 Date of Treatment Plan Review:: 03/30/24 Admitting Diagnoses:: 1. Major depressive disorder, recurrent, severe without psychosis F33.2 2. PTSD 3. Generalized anxiety disorder 4. Primary support and work issues Current Diagnoses:: 1. Major depressive disorder, recurrent, severe without psychosis F33.2 2. PTSD 3. Generalized anxiety disorder 4. Primary support and work issues Patient Status Patient's Response to Treatment:: Pt has responded well to treatment AEB consistent attendance, engaging in group sessions, and opening up with IOP therapist. Status of Current Problems and Symptoms: Client reporting improvement with her ability to manage her emotions and mental health symptoms. Client is doing be tter with starting set boundaries with her mom and reporting a decrease in how her mom's emotions impact her. Client starting to report improvement in how she feels at work. Client occasionally still feels guilty about traumatic situation that occurred at work. Client reporting mild anxiety and depression currently. Client's anxiety has kept her from going to the gym due to worries about how others will think about her. Progress Problem #1: Problem Name:: Anxiety Status of Goals:: Obj 1 - met, ongoing work encouraged. Client is able to identify healthy calming skills like belly breathing, grounding, and engaging her senses. Client reports she has been doing better with utilizing calming skills to manage anxious symptoms. Client is still engaging in avoidance of certain anxiety provoking situations like going to certain public places due to her anxiety. Per DSM 5 clients scores at review indicate a 67% reduction in anxious symptoms when compared to admission scores. Obj 2 - partially met, ongoing work encouraged. Client can identify her anxiety triggers like being around certain men and going to certain public places. Does struggle with use of skills to help manage these anxiety triggers. Per DSM 5 cross-cutting measure client's scores indicate a 67% reduction in overall mental health symptoms. Team Recommendations:: Team recommends continued work on goals and objectives with focus on consistently using skills, decreasing avoidance of anxiety provoking situations, and continued work on building self- esteem/confidence by challenging negative thoughts. Problem #2: Problem Name:: Depression Status of Goals:: Obj 1 - met, ongoing work encouraged. Client reporting decrease in her depressed symptoms AEB improved daily functioning, improve daily mood, and interest in starting new hobbies. Per DSM 5 cross-cutting measure at review client's scores indicate a 63% reduction in depression. Obj 2 - progress noted, ongoing work encouraged. Client is reporting some awareness of her negative thought patterns and can connect how her negative thoughts impact her mood. Client not at the point she can independently challenge negative thought patterns. Team Recommendations:: Team recommends continued work on goals and objectives with focus on consistently using skills, decreasing avoidance of anxiety provoking situations, and continued work on building self- esteem/confidence by challenging negative thoughts.
--- NOTE | 2024-04-04 09:00 | BH.SGPN.GN ---
Behaviors/Verbalizations/Mental Status: [] Client alert and oriented, casual appearance. Eye contact good. Motor activity appropriate. Speech within normal limits. Affect congruent, mood euthymic. Thoughts linear, logical, no signs of hallucinations or delusions. Reviewed client?s symptom tracker, no risk for suicidal ideation, plan, or intent. Client Response/Progress/Benefit: [] Client responded well to session AEB listening to others and sharing thoughts/feelings. Client reports a 2/5 for depression and a 3/5 for anxiety. client reported mental health positive as setting boundaries with her mom over the weekend. Client stated she had done some journaling which helped her decide having a talk with her mom would be helpful. 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 Client reported she has been doing better with following through on her goals outside treatment. Appeared to benefit from support from peers. Will continue IOP tx to promote use of healthy coping skills, challenge negative/distorted thoughts, and prevent decompensation.
--- NOTE | 2024-04-04 10:10 | BH.SGPN.GN ---
Behaviors/Verbalizations/Mental Status: [] Eye contact is good. Motor activity is appropriate. Appearance is casual. Speech is Appropriate. Mood is depressed. Affect is congruent. Thoughts are linear and logical. No evidence of psychosis. Client Response/Progress/Benefit: [] Pt receptive to session AEB contributing to group discussion, as well as listening attentively to others, and taking notes. Worked with group to brainstorm the positive and negative aspects of stress on physical and mental health as well as the impact of distress on performance, relationships, and mental health. Pt shared their top stressors to be: limited social supports, poor boundaries, and self-confidence/identity. Shared when feeling overwhelmed with stress they tend to shut down and lash out. Benefited from increased awareness of positive and negative stress as well as how stress impacts mental health and relationships. Will continue in IOP to promote utilization of emotion regulation skills, improve positive view of self, and prevent decompensation. Narrative Note: []
--- NOTE | 2024-04-04 11:10 | BH.SGPN.GN ---
Behaviors/Verbalizations/Mental Status: []Pt alert and oriented, casually dressed and groomed. Eye contact good. Motor activity appropriate. Speech within normal limits. Affect congruent, mood anxious and euthymic. Thoughts linear, logical, no signs of hallucinations or delusions. Client Response/Progress/Benefit: [] Pt was an active participant in group discussions and experiential activity. Attentive during psychoeducation on the 4 A's (Avoid, adapt, alter, accept) of coping with stress. Pt wants to work on altering her approach and setting more boundaries with her mother, work, and friends. Was able to identify the connection between the experiential activity and utilization of stress management skills. Benefited from increased awareness of stress management strategies. Pt will continue IOP tx to promote use of healthy coping skills, reduce negative thinking patterns, and improve self-care. Narrative Note: []
--- NOTE | 2024-04-07 09:05 | BH.SGPN.GN ---
Behaviors/Verbalizations/Mental Status: [] Pt alert and oriented, neatly dressed and groomed. Eye contact good. Motor activity appropriate. Speech within normal limits. Affect congruent, mood euthymic. Thoughts linear, logical, no signs of hallucinations or delusions. Reviewed pt?s symptom tracker, no risk for suicidal ideation, plan, or intent 04/07/24 Client Response/Progress/Benefit: []Pt responded well to session, attentive and engaged. Pt reports feeling chill this morning as pt is experiencing less anxiety recently. Pt also identified her mental health wins as getting a gym membership and readying a gym bag so it will be easier for her to get to the gym. Pt stated she anxious about her mom being off work this week which means they could be spending more time together, but pt was reminded she can set boundaries with mom. Pt appeared to benefit from reflecting on her application of skills and receiving feedback. Pt will continue IOP tx to promote mood stability, increase self-care, and reduce negative thinking patterns. Narrative Note: []
--- NOTE | 2024-04-07 10:10 | BH.SGPN.GN ---
Behaviors/Verbalizations/Mental Status: [] Eye contact is good. Alert and oriented. Motor activity is appropriate. Appearance is casual. grooming is appropriate. Speech is Appropriate. Mood is euthymic. Affect is full. Thoughts are linear and logical. No evidence of psychosis or hallucinations. Client Response/Progress/Benefit: [] Client was an active participate AEB listening attentively to others, participating in group discussions, and taking notes throughout. Participated as the group identified the impact of emotions on communication such as change in tone, body language, shutting down, misperceiving the communication, and willingness to communicate. Participated with peers to identified reasons why one stuffs emotions which include; to avoid conflict, not draw attention to struggles, being emotional can be perceived as a weakness, and it can make when feel vulnerable.Participated during group activity. Client benefited from session by gaining an increased understanding on the importance of managing emotions to improve daily functioning. Client will continue IOP to increase healthy coping, prevent decompensation, and to improve functioning. Narrative Note: []
--- NOTE | 2024-04-07 11:15 | BH.SGPN.GN ---
Behaviors/Verbalizations/Mental Status: []Pt alert and oriented, casually dressed and well groomed. Eye contact good. Motor activity appropriate. Speech within normal limits. Affect congruent, mood euthymic. Thoughts linear, logical, no signs of hallucinations or delusions. Client Response/Progress/Benefit: [] Pt engaged in session AEB Pt listening attentively to peers and providing input. Attentive during psychoeducation on 4 zones of regulation. Pt able to identify feelings and behaviors for each zone. Pt identified coping skills one can use to support self in each zone. Pt wants to practice moving her body, taking care of her dog, and engaging in personal hygiene as skills/strategies that can help when she is in the blue zone. Benefited from increased education on zones of regulation or stages of alertness for emotions and healthy coping skills to use for each zone. Will continue IOP tx to improve view of self, increase healthy coping skills, and prevent decompensation.
--- NOTE | 2024-04-08 09:00 | BH.SGPN.GN ---
Behaviors/Verbalizations/Mental Status: [] Eye contact good. Motor activity appropriate. Speech within normal limits. Affect congruent, mood euthymic. Thoughts linear, logical, no signs of hallucinations or delusions. Reviewed client?s symptom tracker, denies SI, plan, or intent Client Response/Progress/Benefit: [] Pt was an active participant in group discussion. Attentive. Able to identify mental health wins and healthy habits. Shared a stressful series of events and states I managed it. Proud of herself for utilizing an array of healthy skills (mindfulness, reframing, etc) which helped with emotion regulation. Progress noted per pt report. Benefited from group support, encouragement, and feedback. Will continue in IOP to prevent decompensation, increase healthy coping, and improve functioning. Narrative Note: []
--- NOTE | 2024-04-08 10:10 | BH.SGPN.GN ---
Behaviors/Verbalizations/Mental Status: []Eye contact is good. Motor activity is appropriate. Appearance is neat. Speech is Appropriate. Mood is euthymic. Affect is congruent. Thoughts are linear and logical. No evidence of psychosis Client Response/Progress/Benefit: [] Pt was an active participant in group discussion and experiential activity. Attentive during psychoeducation on resilience. Participated during interactive discussion with peers on the definition of resilience. Able to relate experiential activity of group juggle to topics of resilience. Group worked together to identify what can impact one's ability to be resilient which included past experiences, trauma, toxic support system, lack of resources, and current mental/physical health state. Worked well with peers in small group in which they identified factors that contribute to building resilience. Pt?s group worked on the importance of keeping things in perspective. Benefited from increased awareness of resilience and the factors that contribute to building resilience. Will continue in IOP to promote mood stability, improve self-confidence, and reduce negative thinking patterns. Narrative Note: []
--- NOTE | 2024-04-08 11:10 | BH.SGPN.GN ---
Behaviors/Verbalizations/Mental Status: []Pt alert and oriented, causally dressed and appropriately groomed. Eye contact good. Motor activity appropriate. Speech within normal limits. Affect congruent, mood euthymic. Thoughts linear, logical, no signs of hallucinations or delusions. Client Response/Progress/Benefit: [] Pt responded well to session AEB completing the resilience worksheet provided. Pt participated in the discussion and worked cooperatively with group to identify strategies to enhance each of the components discussed. Pt reports belief they already use resilience traits of??nurture a positive view of self, keeping things in perspective, and taking care of self.? Pt stated they would like to continue to develop resilience trait of ?nuturing a positive view of self? as pt recognizes she struggles with identifying things she is confident in. Pt seemed to benefit from discussing strategies for improving personal resilience and identifying resilience traits pt already possesses. Will continue IOP tx to prevent decompensation, challenge distortions, and build confidence.
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
--- NOTE | 2024-04-11 09:05 | BH.SGPN.GN ---
Behaviors/Verbalizations/Mental Status: [] Eye contact is good. Motor activity is appropriate. Appearance is casual. Speech is Appropriate. Mood is depressed. Affect is congruent. Thoughts are linear and logical. No evidence of psychosis. Reviewed daily check in sheet and no reports of suicidal ideations or intent. Client Response/Progress/Benefit: [] Pt was an active participant in group discussions. Attentive. Daily symptom tracker notes 10/30 for depression and anxiety. Able to identify mental health wins and healthy habits. She shared recent events in which she was able to calm herself utilizing healthy coping strategies. Increased awareness of triggers and skills to implement. Shared that she revisited a location which is a trauma trigger and it did not impact her as it did prior to IOP. Her stressor is that she continues to seek avenues to increase her socialization which she believes will benefit her mental health. Progress noted. Benefited from group support, encouragement, and feedback. Will continue in IOP to prevent decompensation, stabilize mood, and increase health coping Narrative Note: []
--- NOTE | 2024-04-11 10:15 | BH.SGPN.GN ---
Behaviors/Verbalizations/Mental Status: []Pt alert and oriented, neatly dressed and groomed. Eye contact good. Motor activity appropriate. Speech within normal limits. Affect congruent, mood euthymic. Thoughts linear, logical, no signs of hallucinations or delusions. Client Response/Progress/Benefit: [] Pt took notes and contributed occasionally. Attentive during psychoeducation on growth mindset. Participated during the activity. Interactive group discussion on growth mindset in which group verbalized their current fixed mindsets and how they affect their mental health. 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 These thoughts lead to avoiding meeting new people and self-deprecating. Pt benefited from increased awareness of growth mindset and fixed thoughts and how fixed thoughts impact their mental health. Will continue IOP tx to promote mood stability, reduce negative self-talk, and improve daily functioning. ? Narrative Note: []
--- NOTE | 2024-04-11 11:15 | BH.SGPN.GN ---
Behaviors/Verbalizations/Mental Status: []Pt alert and oriented, casually dressed and groomed. Eye contact good. Motor activity appropriate. Speech within normal limits. Affect congruent, mood content, anxious. Thoughts linear, logical, no signs of hallucinations or delusions. Client Response/Progress/Benefit: [] Pt was an active participant during activity and discussion. Pt did well to remain attentive and participate as group worked on identifying characteristics and benefits of adopting a growth mindset. Worked with fellow participants in reframing the example fixed thoughts into growth mindset thoughts. Pt worked on changing own fixed thought and reframed the thought to ?I can and am able to go back to college if I decide I want to?. Pt appeared to benefit from challenging own thoughts and engaging in the activity. Pt will continue IOP tx to prevent decompensation, improve confidence and positive self-talk, and gain healthy coping skills. ? Narrative Note: []
--- NOTE | 2024-04-13 09:01 | BH.SGPN.GN ---
Behaviors/Verbalizations/Mental Status: []Pt alert and oriented, casually dressed and groomed. Eye contact good. Motor activity appropriate. Speech within normal limits. Affect constricted. mood dysthymic. Thoughts linear, logical, no signs of hallucinations or delusions. Reviewed pt?s symptom tracker, no risk for suicidal ideation, plan, or intent. Client Response/Progress/Benefit: []Pt responded well to session, attentive and engaged. Pt reports mental health positive as having her first psychiatrist appointment and feeling like it went well. Pt reported additional mental health positive as maintaining a boundary with her mom. Pt stated she is doing better with keeping the boundaries she sets because she knows it's for the best of her mental health. Pt reported current stressor as having numerous mosquito bites that are constantly itchy. Pt stated she is feeling a little disconnected and blah. Pt will continue IOP tx to improve healthy coping skills, challenge distorted thoughts, and prevent decompensation.Behaviors/Verbalizations/Mental Status: []Pt alert and oriented, casually dressed and groomed. Eye contact good. Motor activity appropriate. Speech within normal limits. Affect constricted. mood dysthymic. Thoughts linear, logical, no signs of hallucinations or delusions. Reviewed pt?s symptom tracker, no risk for suicidal ideation, plan, or intent. Client Response/Progress/Benefit: []Pt responded well to session, attentive and engaged. Pt reports mental health positive as having her first psychiatrist appointment and feeling like it went well. Pt reported additional mental health positive as maintaining a boundary with her mom. Pt stated she is doing better with keeping the boundaries she sets because she knows it's for the best of her mental health. Pt reported current stressor as having numerous mosquito bites that are constantly itchy. Pt stated she is feeling a little disconnected and blah. Pt will continue IOP tx to improve healthy coping skills, challenge distorted thoughts, and prevent decompensation.
--- NOTE | 2024-04-13 11:15 | BH.SGPN.GN ---
Behaviors/Verbalizations/Mental Status: []Eye contact is good. Motor activity is appropriate. Appearance is neat. Speech is Appropriate. Mood is dysthymic. Affect is constricted. Thoughts are linear and logical. No evidence of psychosis. Client Response/Progress/Benefit: []Pt responded well to session, attentive and engaged in group discussions and activity. Group discussed values and the benefits that knowing one's values can have on one's mental health. Pt explored own values and identified personal top values. Pt stated a personally important value is physical health. Pt set a goal to go to the gym for at least 30 minutes by next Thursday and stretch before work. Pt benefitted from gaining insight to her values and how these values can help set and accomplish goals. Will continue in IOP to promote use of healthy coping skills, improve daily functioning, and combat distorted thinking patterns. Narrative Note: []
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
--- NOTE | 2024-04-14 09:00 | BH.SGPN.GN ---
Behaviors/Verbalizations/Mental Status: [] Eye contact good. Motor activity appropriate. Speech within normal limits. Affect congruent, mood anxious and dysthymic. Thoughts linear, logical, no signs of hallucinations or delusions. Reviewed client?s symptom tracker, denies SI, plan, or intent as of 04/14/24. Client Response/Progress/Benefit: [] Pt was an active participant in group discussion. Attentive. Daily symptom tracker notes 10/30 for depression, anxiety, and irritability. Unable to identify a mental health win. I'm trying to get out into public and increase socialization however is struggling. She reports that she will catastrophize regarding worst case scenarios when she develops a plan to engage socially which often leads to avoiding the socialization opportunity. Current support is limited to family. Believes that she has poison brenda due to yard work recently which has led to rumination and limited activity. She plans to visit an urgent care today to get evaluated. Benefited from group support, encouargment, and feedback. Will continue in IOP to prevent decompensation, stabilize mood, and increase healthy coping. Narrative Note: []
--- NOTE | 2024-04-14 10:15 | BH.SGPN.GN ---
Behaviors/Verbalizations/Mental Status: []Pt alert and oriented, neatly dressed and groomed. Eye contact good. Motor activity appropriate. Speech within normal limits. Affect congruent, mood calm. Thoughts linear, logical, no signs of hallucinations or delusions. Client Response/Progress/Benefit: [] Pt was attentive during psychoeducation and participated in group activity. Group discussed what contributes to a person?s perspective and how perspective can positively or negatively impact mental health treatment. Pt reflected on their perspective today and how it is impacting them. Pt shared her perspective today is ?in the middle? as pt feels she is ?naturally pessimistic, but she is learning to use a growth mindset and use humor in a health way. Pt appeared to benefit from increasing awareness of different perspectives and how they can affect mental health. Pt will continue IOP tx to promote use of healthy coping skills, improve daily functioning, and increase distress tolerance. ? Narrative Note: []
--- NOTE | 2024-04-14 11:15 | BH.SGPN.GN ---
Behaviors/Verbalizations/Mental Status: []Pt alert and oriented, casually dressed and groomed. Eye contact good. Motor activity appropriate. Speech within normal limits. Affect congruent, mood dysthymic and anxious. Thoughts linear, logical, no signs of hallucinations or delusions. Client Response/Progress/Benefit: []Pt was attentive and contributed to group discussion. Pt worked with group to identify strategies that can help with challenging negative perspective. Pt completed strengths exploration worksheet, identifying artistic ability, adventureness, open mindedness, and humor as personal strengths. Pt able to acknowledge how these strengths are helping pt and can continue to help pt in mental health journey. Pt identified wanting to work on leaning on strength of humor to begin implementing a more light hearted approach to life. Benefited from identifying personal strengths and strategies for enhancing use of identified strengths. Pt will continue IOP tx to work on application of behavior activation skills, improve mood stability, and prevent decompensation. Narrative Note: []
--- NOTE | 2024-04-19 09:05 | BH.SGPN.GN ---
Behaviors/Verbalizations/Mental Status: [] Eye contact is good. Motor activity is appropriate. Appearance is casual. Speech is Appropriate. Mood is depressed. Affect is congruent. Thoughts are linear and logical. No evidence of psychosis. Reviewed daily check in sheet and no reports of suicidal ideations or intent. Client Response/Progress/Benefit: [] Pt participated at times during the group discussion on differences between Empathy and Sympathy. Shared that she was struggling with depression more than she verbalized last week. ? I was really hard on myself? and ? I was really low?. Able to identify triggers to decompensation last week, skills that she avoided or could have used, and the role that her thoughts/perspectives played in worsening depression. Benefited from group support, encouragement, and feedback. Will continue in IOP to prevent decompensation, increase healthy coping, and improve functioning. Narrative Note: []
--- NOTE | 2024-04-19 10:10 | BH.SGPN.GN ---
Behaviors/Verbalizations/Mental Status: [] Eye contact is good. Motor activity is appropriate. Appearance is casual. Speech is Appropriate. Mood is euthymic. Affect is congruent. Thoughts are linear and logical. No evidence of psychosis. Client Response/Progress/Benefit: [] Pt an active participant in group discussions. Participated during interactive discussion on defining conflict (internal/external) and possible benefits to conflict. Attentive during psychoeducation on conflict styles (Avoidant, Accommodating, Competing, Cooperative) and engaged during interactive discussion in which peers identified the benefits and consequences to each conflict style. Pt identified their primary conflict style as accommodating. Pt stated it seems easier in the moment to accommodate to others but recognizes it often leads to her own thoughts/opinions not being heard. Benefited from increased awareness of the impact of conflict styles in mental health. Will continue in IOP tx to prevent decompensation, improve view of self, and promote use of healthy coping skills.
--- NOTE | 2024-04-19 11:10 | BH.SGPN.GN ---
Behaviors/Verbalizations/Mental Status: [] Eye contact is good. Motor activity is appropriate. Appearance is casual. Speech is Appropriate. Mood is euthymic. Affect is congruent. Thoughts are linear and logical. No evidence of psychosis. Client Response/Progress/Benefit: [] Pt was an active participant in group discussions and activity. Engaged with peers in activity and identifying healthy ways to approach each conflict scenario. Group discussed various conflict resolution skills that can be useful in addressing conflict outside of IOP. Benefited from practicing and learning conflict resolution skills during group activity. Able to identify areas pt wants to work on to improve how pt manages conflict both internally and externally. Expressed wanting to work on being assertive with her mom to express boundaries. Will continue in IOP to promote use of healthy coping skills, challenge negative/distorted thoguhts, and prevent decompensation.
--- NOTE | 2024-04-21 09:02 | BH.SGPN.GN ---
Behaviors/Verbalizations/Mental Status: [] Eye contact good. Motor activity appropriate. Speech within normal limits. Affect congruent, mood euthymic. Thoughts linear, logical, no signs of hallucinations or delusions. Reviewed client?s symptom tracker, denies SI, plan, or intent as of 04/21/2024. Client Response/Progress/Benefit: [] Client receptive of session, attentive and willing to process with group. Identified mental health ?wins? as making progress on improving her self-care and discussed taking steps to read more as well as walk. Shared changing the types of entertainment she consumes as well which has helped with challenging her perspective. Additional win noted as following through with contacting someone about trying to secure the title of her car as it is in [place]. Discussed frustration with the limited customer support but continuing to follow-through with reaching out despite the effort. Stressor noted as limited LGBTQ+ support in the area and struggling to find local supports. Receptive of encouragement and support from the group, as well as identified the need to practice sitting with the discomfort of reaching out to new people. Recommended continued IOP tx to improve mood stability, promote skill building and application, as well as prevent decompensation. Narrative Note: []
--- NOTE | 2024-04-21 10:10 | BH.SGPN.GN ---
Behaviors/Verbalizations/Mental Status: [] Client alert and oriented, casually dressed and groomed. Eye contact good. Motor activity appropriate. Speech within normal limits. Affect congruent, mood euthymic. Thoughts linear, logical, no signs of hallucinations or delusions. Client Response/Progress/Benefit: [] Client was an active participant, AEB taking notes and providing input in group discussions and activities. Attentive during psychoeducation. Client engaged during interactive discussion in which the group defined self-care and discussed its benefits. Group discussed barriers to engaging in self-care. Group members together came up with guilt, time, urge to put others first, not knowing what to do for self-care,and perception that its unproductive as barriers to engage in self care. Client participated in small groups where they worked to identified and challenged common self-care ?myths?. Benefited from increased awareness of self-care, its benefits, and the consequences of not utilizing self-care strategies. Will continue IOP tx to prevent decompensation, stablize mood, increase healthy coping, and improve functioning. Narrative Note: []
--- NOTE | 2024-04-21 11:10 | BH.SGPN.GN ---
Behaviors/Verbalizations/Mental Status: [] Client alert and oriented, casually dressed and groomed. Eye contact good. Motor activity appropriate. Speech within normal limits. Affect congruent, mood euthymic. Thoughts linear, logical, no signs of hallucinations or delusions. Client Response/Progress/Benefit: [] Client engaged participant AEB completing self-assessment of current self care and providing input throughout discussion. Client completed worksheet identifying current self-care practices and what self-care activities client wants to start using. Client selected spiritual self-care to begin practicing more consistently. Client plans to do this by attending a yoga class. Appeared to benefit from completing the self-care evaluation and gaining insights into current self-care practices, as well as identifying areas in which client would like to improve upon. Client will continue IOP tx to improve view of self, promote use of healthy coping skills, and prevent decompensation.
--- NOTE | 2024-04-21 15:06 | BH.MDN_ITS ---
Multi-Disciplinary Note Note 45-min Individual: Time Started:: 12:15 Date: 04/21/24 Purpose of session/treatment goals addressed:: Purpose of session was to address goals 1 and 2 from MTP. Eye Contact:: Good Motor Activity:: Appropriate Appearance:: Casual Speech:: Appropriate Mood:: Euthymic and Anxious Affect:: Congruent Thoughts:: Linear, Logical and No evidence of hallucinations/delusions noted Staff Interventions:: thought challenging, CBT techniques, mindfulness skills, strengths perspective, goal setting and taught coping skills Client Response:: Client reports she does feel like she is doing better emotionally after her menstrual cycle ended. Client states she was in a difficult situation with her mood which she is attributing to her menstrual cycle. Client states she is working with her OB to rule out possible PMDD. Client reports she did make a phone call to 2 therapist options that was provided to her for aftercare. Client reports she is waiting to hear back to see if they are currently accepting patients. Client states she does feel like starting to address some of her internalize struggle with her sexuality last week was helpful for her to begin the processing. Client reported she recognizes she has a lot of work to continue to do in becoming more comfortable in her own body and who she is. Client stated able to recognize that getting more comfortable with who she is is addressing the root of a lot of her issues instead of only looking at the surface. Client reported she does recognize she has avoided put herself in situations that would make her anxious and has not followed through with some of the goals set in previous sessions. Client stated her goal for this weekend is to go on Thursday evening to a private event held in [place]. Client thinks that this will be a good step in some anxiety exposure and putting herself out there. Client stated she is feeling anxious about discharge from [facility] next week but recognizes that she has made significant treatment progress compared to when she first started the program. Client encouraged to start to think about what skills and strategies will be most helpful for her in regards to maintenance. Risks/Concerns:: Denies suicide ideation, plan, and intention. Progress Toward Goals/Plan:: Progress noted with client reporting improved mood this week with decreased depression and anxiety. Client notes desired to continue work of exploring her sexuality and becoming more comfortable in her body. Client open to trying a exposure goal of going to a social event over the weekend. Plan is for client to discharge from [facility] next week. Client has made contact with 2 different therapist and attempt to establish with outpatient counseling. Time Stopped:: 13:00
--- NOTE | 2024-04-22 09:05 | BH.SGPN.GN ---
Behaviors/Verbalizations/Mental Status: []Pt alert and oriented, neatly dressed and groomed. Eye contact good. Motor activity appropriate. Speech within normal limits. Affect congruent. mood euthymic. Thoughts linear, logical, no signs of hallucinations or delusions. Reviewed pt?s symptom tracker, no risk for suicidal ideation, plan, or intent 04/22/24 Client Response/Progress/Benefit: []Pt responded well to session, attentive and engaged. Pt reports feeling chill this morning. Pt stated wins today following her routine this morning which put pt into a good head space before IOP and pt has plans to attend a pride event tonight. Pt's stressor is her mom is getting ready to leave for vacation and she asked pt if she could borrow money. Pt stated she could have went on this vacation also, but pt feels she needs time to herself. Pt appeared to benefit from reflecting on application of coping skills and connecting with peers. Pt will continue IOP tx to promote mood stability, increase self-compassion, and improve self-confidence. Narrative Note: []
--- NOTE | 2024-04-22 10:15 | BH.SGPN.GN ---
Behaviors/Verbalizations/Mental Status: [] Eye contact is good. Motor activity is appropriate. Appearance is casual. Speech is Appropriate. Mood is content. Affect is congruent. Thoughts are linear and logical. No evidence of psychosis. Client Response/Progress/Benefit: [] Attentive and engaged throughout the group discussions. Attentive during psychoeducation on the 4 communication styles (Passive, Passive-Aggressive, Aggressive, and Assertive) and the obstacles to effective communication. Attentive during interactive discussion on the benefits of communicating effectively, as well as the benefits and disadvantages to the different communication styles. Reports connecting most with passive but is working on gaining her ability to use more of an assertive style to ensure her needs are met. Benefited from increased understanding of communication styles and how these can impact effective communication. Will continue in IOP to prevent decompensation, increase healthy coping, and improve functioning. Narrative Note: []
--- NOTE | 2024-04-27 10:10 | BH.SGPN.GN ---
Behaviors/Verbalizations/Mental Status: [] Eye contact is good. Motor activity is appropriate. Appearance is casual. Speech is Appropriate. Mood is euthymic. Affect is congruent. Thoughts are linear and logical. No evidence of psychosis. Client Response/Progress/Benefit: []Pt engaged participant AEB listening to others, engaging in activity, and providing feedback at times. Attentive during psychoeducation and provided insight into obstacles that impede mental wellness. Pt shared with group current mental health reality and desired mental health reality. Stating she would like to appreciate the small things in life. Identified barriers to desired reality include: not asking for help, procrastination, and outthinking. Benefited from taking look at current mental health state and obstacles for progress. Pt to continue IOP tx to improve mood stability, reduce reliance on maladaptive coping, and prevent decompensation. Narrative Note: []
== END 2024-04-24 23:59 ==
LOC: BHIOP 08:11
PROVIDERS: PCP Nurse Practitioner Family; Visit Provider Psychiatry & Neurology Psychiatry
DX: F33.2 Major depressive disorder, recurrent severe without psychotic features (principal); F43.10 Post-traumatic stress disorder, unspecified; F41.1 Generalized anxiety disorder; Z79.899 Other long term (current) drug therapy
CPT/HCPCS: S9480; 90834; 90837; 90853

== ENCOUNTER 2024-04-25 07:13 | Outpatient (RCR) | payer BC, SELFPAY ==
[2024-04-25 00:23] VITALS: BP 124/85; PULSE 69
--- NOTE | 2024-04-26 09:05 | BH.SGPN.GN ---
Behaviors/Verbalizations/Mental Status: [] Eye contact is good. Motor activity is appropriate. Appearance is casual. Speech is Appropriate. Mood is euthymic. Affect is full. Thoughts are linear and logical. No evidence of psychosis. Reviewed daily check in sheet and no reports of suicidal ideations or intent. Client Response/Progress/Benefit: [] Pt was an active participant in group discussions. Attentive. Daily symptom tracker notes 10/30 for depression and anxiety. Emotion for today is ? lively?. Shared that she has been able to consistently maintain her ?happiness?. Reframing, challenging, and acceptance are primary skills. Also reports increased awareness of triggers. ? I?m allowing events to occur and not reacting?. Progress noted. Benefited from group support, encouragement, and feedback. Will continue in IOP to prevent decompensation, maintain gains, and increase healthy coping. Narrative Note: []
--- NOTE | 2024-04-26 10:10 | BH.SGPN.GN ---
Behaviors/Verbalizations/Mental Status: []Pt alert and oriented, causally dressed and groomed. Eye contact fair. Motor activity appropriate. Speech within normal limits. Affect constricted, mood anxious. Thoughts linear, logical, no signs of hallucinations or delusions. Client Response/Progress/Benefit: [] Pt was actively engaged, providing input, and taking notes throughout session. Connected with the topic of pitfalls and listened to group discussion on internal and external barriers that prevent from choosing a healthier path to mental wellness. Group worked together to identify examples of personal internal pitfalls. Engaged in activity and worked cooperatively with peers. Shared personal pitfalls to include giving up when things are too hard and ignore my emotions. Pt benefited from group as pt learned to better identify and normalize potential barriers to improving mental health symptoms. Pt also gained awareness of the difference between external triggers and self-sabotaging behaviors. Pt will continue IOP tx to challenge distorted thoughts, increase consistent use of healthy coping skills, and prevent decompensation.
--- NOTE | 2024-04-26 11:15 | BH.SGPN.GN ---
Behaviors/Verbalizations/Mental Status: []Pt alert and oriented, casually dressed and groomed. Eye contact good. Motor activity appropriate. Speech within normal limits. Affect congruent, mood anxious and content. Thoughts linear, logical, no signs of hallucinations or delusions. Client Response/Progress/Benefit: [] Pt receptive of session, engaged throughout AEB actively contributing and listening to discussion, as well as taking notes. Pt participated in the experiential activity and processed with group how their emotions, perspective, and reactions positively and negatively impacted the outcome. Pt identified pitfalls they struggle with and shared wanting to work on pitfall of ignoring her emotions by practicing daily gratitude and self-reflection. Benefited from identifying personal pitfalls and strategies to overcome these pitfalls. Will continue IOP tx to prevent decompensation, improve daily functioning, and maintain mood stability. Narrative Note: []
--- NOTE | 2024-04-27 09:05 | BH.SGPN.GN ---
Behaviors/Verbalizations/Mental Status: [] Eye contact is good. Motor activity is appropriate. Appearance is casual. Speech is Appropriate. Mood is euthymic. Affect is full. Thoughts are linear and logical. No evidence of psychosis. Reviewed daily check in sheet and no reports of suicidal ideations or intent. Client Response/Progress/Benefit: [] Pt was an active participant in group discussions. Attentive. Daily symptom tracker notes 10/30 for depression and anxiety. Pt reports increased social engagement, practicing mindfulness skills, and increased awareness. She shared several recent events in which she has had increased awareness of cognitive distortions and was able to reframe and challenge. Also increased acceptance of certain people in her life. Emotion for today is ?content?. Progress noted per pt report. Will continue in IOP to maintain gains, increase healthy coping, and prevent decompensation. Narrative Note: []
--- NOTE | 2024-04-27 11:10 | BH.SGPN.GN ---
Behaviors/Verbalizations/Mental Status: [] Eye contact is good. Motor activity is appropriate. Appearance is casual. Speech is Appropriate. Mood is euthymic. Affect is congruent. Thoughts are linear and logical. No evidence of psychosis. Client Response/Progress/Benefit: [] Pt was an engaged participant in group discussion and activity. Worked with group to identify strategies to help overcome barriers and obstacles to desired reality. Group developed strategies for the common barriers. Identified personal barriers to desired reality and choose one obstacle to work. Pt stated she wants to work on barrier of isolating by reevaluating goals and giving herself rewards when completing them. Pt seemed to benefit from increased repertoire of healthy coping skills/strategies to overcome common barriers to moving forward. Pt is to continue IOP to increase healthy coping skills, increase self worth, and prevent decompensation. Narrative Note: []
--- NOTE | 2024-04-27 12:56 | PCM.BH.PN ---
Progress Note Progress Note: History of Present Illness/Interim History: The patient is a 33-year-old single female with a history of depression, anxiety and PTSD who is seen in follow-up at the [facility] behavioral health IOP. I last saw the patient 4 weeks ago and no medication changes were made at that time. According to the staff the patient is improving and is doing well overall. The patient feels she is learning valuable skills in the program and agrees that she has made progress. She had a low vitamin D so we will prescribe replacement for that. She feels her anxiety has decreased tremendously and she no longer has passive thoughts of or suicidal ideation. She is not having crying episodes or hopelessness either. She denies suicidal ideation, plan for suicide, homicidal ideation, hallucinations or delusions. The patient does again discussed the worsening of her moods at about 10 days premenstrually. She has been taking control pills for 1 month but has not noticed any improvement yet. Current Psychiatric Medications: [] Prozac 20 mg p.o. daily (x 2 months); Zoloft weaned and discontinued 6 weeks ago. Mental Status Examination: [] The patient is a 33-year-old female who appears normal for stated age and is casually dressed and groomed with good hygiene. She has a normal ambulatory gait and no psychomotor agitation or retardation. She is cooperative and pleasant during the interview. Eye contact is good and speech is normal rate and rhythm and fluent with no pressure. Mood is mildly anxious. Affect is full and normal. Thought process is goal-directed and organized. Thought content: The patient is hopeful for the future. There is no evidence of passive thoughts of , suicidal ideation, plan for suicide, homicidal ideation, hallucinations or delusions. Reality testing is intact. Judgment is intact. Insight is good. Impulsivity is moderate. Diagnoses: [] 1. Major depressive disorder, in full remission (F33.42) 2. PTSD. 3. Generalized anxiety disorder 4. PMDD (F32.81) 5. Primary support and work issues Plan: [] The patient will continue the IOP in behavioral health at [facility] as she is making good progress and her symptoms are improving. She felt safe during the interview and if it anytime she does not feel safe she agrees to let us know or go to the emergency room. The risk, options, possible complications and side effects of the medications were again discussed with the patient and she understands and accepts these. Discussed with the patient that her premenstrual dysphoric disorder may improve after she is on the pill for 3 months or more. She would like to try adding Prozac premenstrually to see until this improvement occurs. Prescription is sent in for Prozac 10 mg p.o. to be taken on cycle day 17-27 prior to the onset of menses to help with her PMDD symptoms. She will continue to follow-up with her outpatient providers and I will see the patient in follow-up while she is in the IOP.
--- NOTE | 2024-05-03 10:20 | BH.SGPN.GN ---
Behaviors/Verbalizations/Mental Status: []Pt alert and oriented, neatly dressed and groomed. Eye contact good. Motor activity appropriate. Speech within normal limits. Affect congruent, mood euthymic. Thoughts linear, logical, no signs of hallucinations or delusions. Client Response/Progress/Benefit: [] Pt responded well to session, contributing to discussion, and engaged during the activity. Group identified the benefits of change which included: increased confidence, improving mental health, and making progress. Worked with the group to identify barriers to change, which included: uncomfortable emotions such as anxiety and fear, lack of energy, worried about what others will think, and fear of the unknown. Pt participated along with group in activity where they identified and discussed the emotions related to change. Pt connected with peers that one can have many conflicting emotions when faced with change. Benefited from increased awareness and understanding of emotions, benefits, and barriers related to change. Will continue IOP tx to build confidence, increase healthy coping skills, and prevent decompensation.
--- NOTE | 2024-05-03 11:15 | BH.SGPN.GN ---
Behaviors/Verbalizations/Mental Status: [] Client alert and oriented, casually dressed and groomed. Eye contact good. Motor activity appropriate. Speech within normal limits. Affect congruent, mood anxious and euthymic. Thoughts linear, logical, no signs of hallucinations or delusions. Client Response/Progress/Benefit: [] Client responded well to session, attentive throughout. Did well to actively listen and contributed when prompted as group worked to process activity. Pt worked with group to relate the strategies used to overcome barriers in the activity to managing change in own life. Client identified a change they would like to make is maintaining the skills learned throughout IOP tx. Client identified currently being in maintenance stage for this particular change. Client said reaching out to new people and maintaining her current boundaries can help get her to maintain this stage. Appeared to benefit from identifying a change they want and how to progress. Client will continue outpatient tx following IOP d/c today to prevent decompensation, maintain mood stability, and promote ongoing maintenance. Narrative Note: []
--- NOTE | 2024-05-03 14:19 | BH.DS_ITS ---
Discharge Summary Demographics Date of Admission:: 03/07/24 Discharge Date: 05/03/24 Presenting Problems at Admission:: Patient is a 33-year-old single female with a history of depression, anxiety and PTSD who was referred to the [facility] behavioral health IOP by friends and family for worsening symptoms of anxiety in the past month. She has been on intermittent FMLA since January 04, 2024. The patient in the past month began having trauma symptoms which were triggered by several events at work. She endorses sadness, crying, hopelessness, worthlessness, anhedonia, biological disruption of appetite, initial insomnia and waking up with a cold sweat although getting 7 to 8 hours of sleep. She also endorses low energy, decreased concentration, guilt, passive thoughts of and fleeting, passive suicidal ideation. She has thoughts of a plan but denies definitive plan. She has had a long history of passive thoughts of and says that she is always wanted to or not exist.. She states that these thoughts of have been lessening. Discharge Diagnoses:: 1. Major depressive disorder, in full remission (F33.42) 2. PTSD. 3. Generalized anxiety disorder 4. PMDD (F32.81) Reason for Discharge:: Pt has made significant treatment progress and no longer meets medical necessity for IOP level of care. Treatment Progress During Treatment & Response: Progress noted AEB scores on DSM 5 cross- cutting measure at discharge. Per DSM 5 at discharge client's depression decreased by 88%, anxiety decreased by 98%, suicidal thoughts decreased by 100% and an overall decrease of 88% in mental health symptoms. Client consistently attended IOP sessions and often engaged in group sessions. Client often followed through with homework provided in individual therapy. Client reports improved daily functioning, improved ability to manage mental health symptoms, improved boundary setting, and better outlook on life. Issues Still to be Addressed:: Client could benefit from further exploring gender identity, continuing to reinforce healthy coping skills, building confidence, and increasing socialization. Discharge Recommendations/Instructions:: Client is waiting automation and control engineer back from Karen Mcconnell from [facility] to establish with her for individual counseling. Client will continue medication management with EVAPORATOR HELPER named Dalila Chao. Client is to start [facility] Aftercare program next at 2pm. Discharge Handout
--- NOTE | 2024-05-03 22:07 | BH.MDN_ITS ---
Multi-Disciplinary Note Note 60-min Individual: Time Started:: 09:00 Date: 05/03/24 Purpose of session/treatment goals addressed:: Purpose of session was to identify treatment progress, complete maintenance plan, and solidify aftercare plans. Eye Contact:: Good Motor Activity:: Appropriate Appearance:: Casual Speech:: Appropriate Mood:: Euthymic Affect:: Full Thoughts:: Linear, Logical and No evidence of hallucinations/delusions noted Staff Interventions:: CBT techniques, discharge planning, strengths perspective, reviewed DSM-5 and other (maintenance plan) Client Response:: Client reported overall things have been going well over the last week. Client stated she had a situation at work that showed her how much progress she has made because she knows a few weeks ago the work situation would've caused significant anxiety and anger, but she was able to handle it appropriately. Client stated she is feeling excited about discharging from [facility] because she recognizes she has come a long way in her mental health progress. Client worked with therapist to complete maintenance plan in which she identified triggers, warning signs, self-care activities, healthy coping skills, and things she would like to work on with her outpatient therapist. Client noted significant treatment progress with decrease in depression, decrease in anxiety, improved healthy coping skills, improved self-awareness, and a better understanding of what areas she can focus on to get to some of the roots to her struggles. Client stated she has not heard back from the therapists she has attempted to call to establish with outpatient counseling. Client reported she will reach out to one of the therapists again today to get on the schedule. Client stated she does want to do [facility] aftercare group program. Risks/Concerns:: Denies suicidal ideation, plan, or intention to date. Progress Toward Goals/Plan:: Progress noted AEB client reporting significant decrease in her depression, anxiety, no thoughts of , and improved emotion regulation. Per DSM 5 cross-cutting measure at discharge client's scores indicate a 87% reduction in overall symptoms when compared to admission scores. Client is established with a physician for medication management. Client has not been able to get ahold of an outpatient therapist to establish with individual counseling. Client will start [facility] aftercare program on 05/12/24. Time Stopped:: 10:00
== END 2024-05-03 12:34 | disposition home or self-care (01) ==
LOC: BHIOP 07:13
PROVIDERS: PCP Nurse Practitioner Family; Visit Provider Psychiatry & Neurology Psychiatry
DX: F33.42 Major depressive disorder, recurrent, in full remission (principal); F43.10 Post-traumatic stress disorder, unspecified; F41.1 Generalized anxiety disorder; F32.81 Premenstrual dysphoric disorder; Z79.899 Other long term (current) drug therapy
CPT/HCPCS: S9480; 90837; 90853

== ENCOUNTER 2024-05-12 09:57 | Outpatient (RCR) | payer BC, SELFPAY ==
--- NOTE | 2024-05-12 14:00 | BH.SGPN.GN ---
Behaviors/Verbalizations/Mental Status: []Pt alert and oriented, neatly dressed and groomed. Eye contact good. Motor activity appropriate. Speech within normal limits. Affect congruent, mood euthymic. Thoughts linear, logical, no signs of hallucinations or delusions. Client Response/Progress/Benefit: []Pt responded well to session, Pt reports they see their therapist June 02 and she is consistent with medications. Pt also reflected on the coping skills pt has been using such as positive self-talk, healthy distraction, and spending time outdoors. Pt engaged well during the discussion on intrinsic and extrinsic motivation. Pt connected with the benefits of developing strong sources of intrinsic motivation and participated in brainstorming strategies to do so. Pt identified plans to begin daily accomplishment log to improve own intrinsic motivation. Pt appeared to benefit from psychoeducation on different sources of motivation and ways to improve motivation. Will continue aftercare tx to maintain gains and prevent decompensation. Narrative Note: []
--- NOTE | 2024-05-12 14:00 | BH.COMM ---
Communication Note Communication with Client Communication Note: Patient completed IOP and presents today to start relapse prevention group which meets once weekly (1.5 hours) for 8 weeks. Case discussed with Dr. Strong with plan to admit with dx of F33.42
--- NOTE | 2024-05-12 14:50 | BH.MTP ---
Master Treatment Plan Patient Information Program Physician:: Dr. Strong Primary Therapist:: Sophia Carney [facility] Psychiatric Diagnoses Psychiatric Diagnoses:: 1. Generalized anxiety disorder 2. PTSD. 3. Major depressive disorder, in full remission (F33.42) 4. PMDD (F32.81) Diagnosis Code(s):: F41.1 Estimated LOS Estimated LOS (in weeks):: 8 Problem/Goal #1 Problem/Goal #1 Stated Goal:: client will maintain or see a reduction in symptoms AEB client score on the DSM 5 cross-cutting measure and improve client's daily functioning. Objectives Objective #1: Stated Objective: Client will continue to consistently apply healthy coping skills to maintain progress made in IOP tx. Interventions: Through group therapy, client will review warning signs and triggers as well as healthy coping skills learned in IOP tx to successfully maintain gains while transitioning into outpatient therapy. Discharge Criteria: Client will have accomplished this goal when client's score on the DSM-5 cross-cutting measure has maintained or reduced over a 8 week period. Target Date: 06/30/24 Review Date: 06/02/24 Objective #2: Stated Objective: Client will learn and utilize 2-3 maintenance strategies to prevent decompensation from original IOP DSM-5 scores. Interventions: Through group therapy, client will be provided with education on healthy maintenance behaviors, relapse prevention techniques, and healthy coping strategies. Discharge Criteria: Client will have accomplished this goal when can report using at least 2 maintenance skills to prevent decompensation compared to original IOP DSM-5 scores. Target Date: 06/30/24 Review Date: 06/02/24
== END 2024-05-25 23:59 ==
LOC: BHOG 09:57
PROVIDERS: PCP Nurse Practitioner Family; Referring Provider Psychiatry & Neurology Psychiatry; Visit Provider Psychiatry & Neurology Psychiatry
DX: F33.42 Major depressive disorder, recurrent, in full remission (principal); F43.10 Post-traumatic stress disorder, unspecified; F41.1 Generalized anxiety disorder; F32.81 Premenstrual dysphoric disorder
CPT/HCPCS: 90853

== ENCOUNTER 2024-05-26 07:18 | Outpatient (RCR) | payer BC, SELFPAY ==
--- NOTE | 2024-05-26 14:00 | BH.SGPN.GN ---
Behaviors/Verbalizations/Mental Status: []Pt alert and oriented, neatly dressed and groomed. Eye contact good. Motor activity appropriate. Speech within normal limits. Affect congruent, mood euthymic. Thoughts linear, logical, no signs of hallucinations or delusions. Client Response/Progress/Benefit: []Pt receptive of session, engaged throughout. Pt shared they met with their outpatient provider since last session. Pt has been taking medications consistently and reports utilizing healthy coping skills outside of aftercare. These skills included: gratitude reflection, checking in with herself, and keeping track of her wins. ?Receptive of discussion on sitting with the uncomfortable and emotional urges. Pt contributed to the discussion of distress tolerance and how building distress tolerance can help improve mood stability and resilience. Pt wants to keep building distress tolerance by not taking the ?mediation role? when pt?s sister and mother get into a disagreement. Pt seemed to benefit from support from peers and increasing understanding of distress tolerance. Will continue aftercare to reinforce healthy coping skills and improve daily functioning. Narrative Note: []
--- NOTE | 2024-06-02 15:03 | BH.TPR ---
Treatment Plan Review Demographics Date of Admission:: 05/12/24 Date of Treatment Plan Review:: 06/02/24 Admitting Diagnoses:: 1. Generalized anxiety disorder F41.1 2. PTSD. 3. Major depressive disorder, in full remission (F33.42) 4. PMDD (F32.81) Current Diagnoses:: 1. Generalized anxiety disorder F41.1 2. PTSD. 3. Major depressive disorder, in full remission (F33.42) 4. PMDD (F32.81) Patient Status Patient's Response to Treatment:: Pt has had to miss some aftercare sessions due to her work schedule. When pt attends aftercare sessions she provides some positive input during group sessions. Client often follows through with homework provided. Status of Current Problems and Symptoms: Client reporting doing very well with maintaining gains made from IOP. Client has been applying healthy coping skills on a consistent basis, challenging negative thoughts, and functioning better at work. Client still reports anxiety related to being social and does avoid going to certain social situations like the gym. Progress Problem #1: Problem Name:: Pt will maintain or see a reduction in sx. Status of Goals:: Obj 1 - met. Per DSM 5 cross-cutting measure client's symptoms have decreased by 93%, compared to admission IOP data. Client's depression has decreased by 88% and anxiety decreased by 92% when compared to IOP admission scores. Obj 2 - met. Client reporting consistent use of healthy coping skills like thought challenge, grounding tools, setting boundaries, and breathing skills. Team Recommendations:: Team recommends client continue current goal and objectives to help with maintenance of progress.
--- NOTE | 2024-06-13 14:00 | BH.SGPN.GN ---
Behaviors/Verbalizations/Mental Status: []Pt alert and oriented, casually dressed and groomed. Eye contact good. Motor activity appropriate. Speech within normal limits. Affect congruent, mood content, positive. Thoughts linear, logical, no signs of hallucinations or delusions. Client Response/Progress/Benefit: []Pt responded well to session AEB sharing and listening attentively to others. Pt has scheduled outpatient mental health appointments for later this month and maintains medication compliance. Pt reports using positive self-talk, opposite action, healthy distraction, and breathing techniques to help with managing mental health symptoms. Pt participated in group discussion defining affirmations and why they are important. Pt provided insight throughout clinician?s presentation of tips for writing personal affirmations and wrote their own affirmations, including ?I am capable of doing hard things?, ?I am actively working on loving myself?, and ?I have the skills to improve this moment?. Pt appeared to benefit from increased knowledge of affirmation writing skills and creating their own affirmation statements to remind themselves of outside tx environment. Will continue aftercare tx to promote consistent mental health maintenance and prevent decompensation. Narrative Note: []
== END 2024-06-25 23:59 ==
LOC: BHOG 07:18
PROVIDERS: PCP Nurse Practitioner Family; Referring Provider Psychiatry & Neurology Psychiatry; Visit Provider Psychiatry & Neurology Psychiatry
DX: F41.1 Generalized anxiety disorder (principal); F43.10 Post-traumatic stress disorder, unspecified; F33.42 Major depressive disorder, recurrent, in full remission; F32.81 Premenstrual dysphoric disorder
CPT/HCPCS: 90853

== ENCOUNTER 2024-06-28 07:12 | Outpatient (RCR) | payer BC, SELFPAY ==
--- NOTE | 2024-06-30 14:00 | BH.SGPN.GN ---
Behaviors/Verbalizations/Mental Status: []Pt alert and oriented, casually dressed and groomed. Eye contact good. Motor activity appropriate. Speech within normal limits. Affect congruent, mood content. Thoughts linear, logical, no signs of hallucinations or delusions. Client Response/Progress/Benefit: [] Pt receptive of session, engaged throughout. Pt shared she has appointments scheduled outpatient therapist and psychiatrist, and has been consistent with meds. Reports the coping skills used throughout the week included: processing emotions before responding, communicating boundaries, and reaching out to friends. Receptive of discussion on the three components of the Wellness [place] (social, mental health, and physical) and the importance of balancing each of these areas. Pt contributed to the discussion on the variables impacting each area of wellness including: biology, environment, attitude, behavior, technology, and social support network. Completed an assessment reviewing personal wellness in each pillar of the wellness triangle. Identified wanting to work on mental wellness by continuing to use clear communication about needs with supports each day. Pt seemed to benefit from support from peers and increasing understanding of the relationship between different areas of wellness. Will d/c from the aftercare program and continue with outpatient providers to maintain gain and prevent decompensation. Narrative Note: []
--- NOTE | 2024-06-30 15:11 | BH.DS ---
Discharge Summary Demographics Date of Admission:: 05/05/24 Discharge Date: 06/30/24 Presenting Problems at Admission:: Pt discharged from IOP tx and transitioned to IOP aftercare to maintain gains pt made in IOP and to reinforce healthy coping skills. At admission to IOP aftercare, pt continued to report symptoms of mild to moderate anxiety, but of reduced intensity. Pt had psychosocial stressors of returning to work and trying to find a outpatient counselor that she connected with. Discharge Diagnoses:: 1. Generalized anxiety disorder F41.1 2. PTSD. 3. Major depressive disorder, in full remission (F33.42) 4. PMDD (F32.81) Reason for Discharge:: Pt has demonstrated significant treatment progress since being in aftercare, has met treatment goals, and reports feeling ready to discharge from aftercare. Treatment Progress During Treatment & Response: Pt responded well and made progress in IOP aftercare as evidenced by pt's participation in group discussions and self-report of applying coping skills. Pt's overall DSM-5 scores decreased by 97% from IOP admission. Pt?s scores for anxiety decreased by 92%, and depression decreased by 100% compared to admission IOP scores. Additionally, at discharge pt reported being able to manage stressors better and improved daily functioning when at work. Issues Still to be Addressed:: Client could benefit from further exploring gender identity, continuing to reinforce healthy coping skills, building confidence, and increasing socialization. Discharge Recommendations/Instructions:: Client will follow up with outpatient counselor, Karen Mcconnell, from [facility]. Client will continue medication management with ROUGH AND TRUEING MACHINE OPERATOR named Dalila Chao. Discharge Handout
== END 2024-07-01 10:35 | disposition home or self-care (01) ==
LOC: BHOG 07:12
PROVIDERS: PCP Nurse Practitioner Family; Referring Provider Psychiatry & Neurology Psychiatry; Visit Provider Psychiatry & Neurology Psychiatry
DX: F41.1 Generalized anxiety disorder (principal); F43.10 Post-traumatic stress disorder, unspecified; F33.42 Major depressive disorder, recurrent, in full remission; F32.81 Premenstrual dysphoric disorder
CPT/HCPCS: 90853